=== PATIENT | male | born 1955 | race Caucasian/White ===

== ENCOUNTER → 2019-04-07 | Outpatient (CLI) | payer BC, OTHER ==
--- NOTE | 2019-04-07 11:14 | 2DMMODE ---
[facility] [place] [address] 2 D/M-MODE ECHOCARDIOGRAM Name: HELADIOSIENNA Room #: REG [facility].#: [id number] ������������� Admission: 04/07/19 ������������� Attend Phys: Mars Palomares MD Discharge: ��� ������������� ��� Date of : 55 �������������������� �� Report #: [id number] �������� ��������������������������������������������[id number] THIS REPORT FOR: //name// APPROVED REPORT Study performed: 04/07/2019 10:19:16 EXAM: Comprehensive 2D, Doppler, and color-flow Echocardiogram Patient Location: Out-Patient Status: routine BSA: 2.09 HR: 80 bpm BP: 130/80 mmHg Rhythm: NSR/PVCs Other Information Study Quality: Good Indications CAD Hx: HTN, HLP 2D Dimensions RVDd: 32.57 mm IVSd: 13.38 (7-11mm) LVOT Diam: 21.21 (18-24mm) LVDd: 54.89 mm PWd: 12.17 (7-11mm) Ascending Ao: 36.12 (22-36mm) LVDs: 38.47 (25-40mm) Aortic Root: 41.05 mm Volumes Left Atrial Volume (Systole) Single Plane 4CH: 84.65 mL Single Plane 2CH: 74.48 mL LA ESV Index: 41.00 mL/m2 Aortic Valve AoV Peak Florentino.: 1.35 m/s AO Peak Gr.: 7.29 mmHg LVOT Max P.64 mmHg LVOT Max V: 0.95 m/s ISHAN Vmax: 2.50 cm2 Mitral Valve E/A Ratio: 0.7 MV Decel. Time: 276.05 ms [facility] [address] [address] 2 D/M-MODE ECHOCARDIOGRAM Name: HELADIOSIENNA Room #: REG [facility]#: [id number] ������������� Admission: 04/07/19 ������������� Attend Phys: Mars Palomares MD Discharge: ��� ������������� ��� Date of : 55 �������������������� �� Report #: [id number] �������� ��������������������������������������������[id number] MV E Max Florentino.: 0.60 m/s MV A Florentino.: 0.89 m/s MV PHT: 80.05 ms IVRT: 96.89 ms Pulmonary Valve PV Peak Florentino.: 0.90 m/s PV Peak Gr.: 3.22 mmHg Tricuspid Valve TR Peak Florentino.: 2.26 m/s RAP Estimate: 5.00 mmHg TR Peak Gr.: 20.48 mmHg PA Pressure: 25.00 mmHg Left Ventricle The left ventricle is normal size. There is normal LV segmental wall motion. Mild basal septal hypertrophy is present. Left ventricular systolic function is normal. LVEF is 60-65%. Mild diastolic dysfunction is present (impaired relaxation pattern). Right Ventricle The right ventricle is normal size. The right ventricular systolic function is normal. Atria Left atrium is mildly dilated. The right atrium size is normal. Aortic Valve The aortic valve is normal in structure. Mild aortic regurgitation. There is no aortic valvular stenosis. Mitral Valve The mitral valve is normal in structure. There is no mitral valve regurgitation noted. No evidence of mitral valve stenosis. Tricuspid Valve The tricuspid valve is normal in structure. Trace tricuspid regurgitation. Estimated PAP is 25-30mmHg. Pulmonic Valve The pulmonary valve is normal in structure. Mild pulmonic regurgitation. Great Vessels Aortic root is dilated at 4.1cm. The ascending aorta is normal in size. IVC is normal in size and collapses >50% with [facility] [address] [place] [address] 2 D/M-MODE ECHOCARDIOGRAM Name: SIENNA LEIJA Room #: REG [facility]#: [id number] ������������� Admission: 04/07/19 ������������� Attend Phys: Mars Palomares MD Discharge: ��� ������������� ��� Date of : 55 �������������������� �� Report #: [id number] �������� ��������������������������������������������[id number] inspiration. Pericardium There is no pericardial effusion. <Conclusion> The left ventricle is normal size. Mild basal septal hypertrophy is present. Left ventricular systolic function is normal. Mild diastolic dysfunction is present (impaired relaxation pattern). The right ventricle is normal size. Left atrium is mildly dilated. Mild aortic regurgitation. The mitral valve is normal in structure. Trace tricuspid regurgitation. Estimated PAP is 25-30mmHg. ��������������������������������������������� <ELECTRONICALLY SIGNED> ���������������������������������������� By: Mars Palomares MD ��������������������������������������������� 04/07/19 1114 [id number] 1114 Mars Palomares MD /INF
== END ==
LOC: CV 10:03
DX: I08.8 Other rheumatic multiple valve diseases (principal); I25.10 Atherosclerotic heart disease of native coronary artery without angina pectoris; I11.9 Hypertensive heart disease without heart failure; E78.00 Pure hypercholesterolemia, unspecified; Z88.8 Allergy status to other drugs, medicaments and biological substances

== ENCOUNTER → 2021-01-07 | Outpatient (CLI) | payer OTHER, MEDICARE | LOC: SJCVCIMAG 08:27 | PROVIDERS: ATTEND Internal Medicine Cardiovascular Disease | DX: I35.1 Nonrheumatic aortic (valve) insufficiency (principal); I11.9 Hypertensive heart disease without heart failure; R93.1 Abnormal findings on diagnostic imaging of heart and coronary circulation; I25.10 Atherosclerotic heart disease of native coronary artery without angina pectoris; E78.00 Pure hypercholesterolemia, unspecified; E78.5 Hyperlipidemia, unspecified; Z88.5 Allergy status to narcotic agent; Z79.82 Long term (current) use of aspirin; Z79.899 Other long term (current) drug therapy; Z82.49 Family history of ischemic heart disease and other diseases of the circulatory system ==

== ENCOUNTER → 2021-04-24 | Outpatient (CLI) | payer OTHER, MEDICARE | LOC: SJCVC 10:34 | PROVIDERS: ATTEND Internal Medicine Cardiovascular Disease | DX: I25.10 Atherosclerotic heart disease of native coronary artery without angina pectoris (principal); I10 Essential (primary) hypertension; E78.5 Hyperlipidemia, unspecified; Z79.82 Long term (current) use of aspirin; Z79.899 Other long term (current) drug therapy; Z88.5 Allergy status to narcotic agent; Z88.8 Allergy status to other drugs, medicaments and biological substances; Z72.89 Other problems related to lifestyle ==